=== PATIENT | female | born 1985 | race Caucasian/White ===

== ENCOUNTER 2018-06-02 10:16 | Emergency (ER) | payer OTHER ==
[2018-06-02 10:36] VITALS: BP 128/57; PULSE 83; TEMP 98.2; BMI 31.9
--- NOTE | 2018-06-02 11:22 | PDOC ---
History of Present Illness - General Chief Complaint: Ear Problem Stated Complaint: RT EAR PAIN Time Seen by Provider: 06/02/18 10:52 History Source: Patient Exam Limitations: No Limitations - History of Present Illness Initial Comments: CHIEF COMPLAINT: 33 y/o afebrile female with no significant PMH c/o right earache x 1 week. HISTORY OF PRESENT ILLNESS: The patient states she's had right ear pain with decreased hearing for 1 week. The patient states she's had right ear issues for 1 year. She believes she had something stuck in her right ear for 1 year and that's what's bothering her. She denies fever, chills, recent swimming, discharge from right ear, GAONA, dizziness, n/v/d and all other symptoms. She does admit to cleaning her ears with q-tips. She has not seen her PCP in the last year for her symptoms. Vital signs on arrival are within normal limits. REVIEW OF SYSTEMS: GENERAL/CONSTITUTIONAL: No fever. HEAD, EYES, EARS, NOSE AND THROAT: No change in vision. +right ear pain with decreased hearing. No sore throat. SKIN: No rash or easy bruising. NEUROLOGIC: No headache, vertigo, loss of consciousness, or loss of sensation. PHYSICAL EXAM: GENERAL: The patient is awake, alert, and fully oriented, in no acute distress. She is well appearing and ambulatory. HEAD: Normal with no signs of trauma. No mastoid TTP b/l. ENT: Pupils equal, round and reactive to light, extraocular movements intact, sclera anicteric, conjunctiva clear. No TTP of tragus b/l. Right TM sclerotic. No erythema or dullness to right TM. No erythema or edema to right canal. No foreign body noted. NEUROLOGICAL: Normal speech, normal gait. CN II-XII grossly intact. SKIN: Warm, dry, normal turgor, no rashes or lesions noted. Past History - Past Medical History Allergies/Adverse Reactions: Allergies Allergy/AdvReac Type Severity Reaction Status Date / Time No Known Allergies Allergy Verified 06/02/18 10:32 Home Medications: Ambulatory Orders NK [No Known Home Medication] 06/02/18 COPD: No - Suicide/Smoking/Psychosocial Hx Smoking History: Current some day smoker Number of Cigarettes Smoked Daily: 2 Information on smoking cessation initiated: Yes 'Breaking Loose' booklet given: 06/02/18 Hx Alcohol Use: No Drug/Substance Use Hx: No *Physical Exam - Vital Signs Last Vital Signs Temp Pulse Resp BP Pulse Ox 98.2 F 83 18 128/57 99 06/02/18 10:25 06/02/18 10:25 06/02/18 10:25 06/02/18 10:25 06/02/18 10:25 Medical Decision Making - Medical Decision Making A/P: 33 y/o female with right TM sclerosis. WIll refer to Dr. Wilkins for further evaluation. Patient instructed to return to the ER with any worsening or concerning symptoms *DC/Admit/Observation/Transfer Diagnosis at time of Disposition: Disorder of tympanic membrane of right ear - Discharge Dispostion Disposition: HOME Condition at time of disposition: Good - Referrals Referrals: Owen Wilkins MD [Staff Physician] - - Patient Instructions Printed Discharge Instructions: DI for Ear Pain-Adult Additional Instructions: Discharge Instructions: -You can take over the counter motrin OR IBUPROFEN every 6 hours for pain -Please call Dr. Wilkins today to schedule a follow up appointment for as soon as possible. -Return to the ER with any worsening or concerning symptoms - Post Discharge Activity Forms/Work/School Notes: Back to Work
== END 2018-06-02 11:28 | disposition home or self-care (01) ==
LOC: JERFT 10:16
DX: H73.891 Other specified disorders of tympanic membrane, right ear (principal)
CPT/HCPCS: 99281-25

== ENCOUNTER 2019-06-29 14:12 | Emergency (ER) | payer OTHER ==
[2019-06-29 14:18] VITALS: BP 99/62; PULSE 79; TEMP 98.1; BMI 33.3
--- NOTE | 2019-06-29 14:21 | PDOC ---
Rapid Medical Evaluation Chief Complaint: Eye Problem Time Seen by Provider: 06/29/19 14:16 Medical Evaluation: Allergies Allergy/AdvReac Type Severity Reaction Status Date / Time No Known Allergies Allergy Verified 06/02/18 10:32 06/29/19 14:18 Pt c/o: bennie eye redness and itching , placed on gtts but lost them, denies visual changes but does state photosensitivity Pt on brief exam: sclera bennie with erythema, mild tearing, no discharge, Pt ordered for: none Pt to proceed to the ED Discharge Disposition - Diagnosis Eye redness - Referrals - Patient Instructions - Post Discharge Activity
--- NOTE | 2019-06-29 15:05 | PDOC ---
History of Present Illness - General Chief Complaint: Eye Problem Stated Complaint: PINK EYE Time Seen by Provider: 06/29/19 14:16 History Source: Patient Exam Limitations: No Limitations - History of Present Illness Initial Comments: 06/29/19 14:51 Patient stated onset of redness, swelling, and drainage to right eye started last week, started using Visine over the weekend. Was seen at another urgent care/ER 4 days ago and was prescribed some eyedrops but lost the bottle. States since that time has had a progression and worsening with now spreading to her left eye. Denies visual changes, denies fever, states wakes up in the morning with purulent drainage and redness bilaterally. Timing/Duration: 1 week Severity: moderate Associated Symptoms: reports: denies symptoms. denies: fever/chills Past History - Travel Traveled outside of the country in the last 30 days: No Close contact w/someone who was outside of country & ill: No - Past Medical History Allergies/Adverse Reactions: Allergies Allergy/AdvReac Type Severity Reaction Status Date / Time No Known Allergies Allergy Verified 06/29/19 14:18 Home Medications: Ambulatory Orders Tobramycin 0.3% Ophth Soln [Tobrex Ophthalmic Solution -] 2 drop OS QID #1 drops 06/29/19 COPD: No - Suicide/Smoking/Psychosocial Hx Smoking History: Current some day smoker Number of Cigarettes Smoked Daily: 2 Information on smoking cessation initiated: No 'Breaking Loose' booklet given: 06/02/18 Hx Alcohol Use: No Drug/Substance Use Hx: Yes (smokes weed) Review of Systems - Review of Systems Able to Perform ROS?: Yes Is the patient limited Faroese proficient: Yes Constitutional: Yes: See HPI. No: Symptoms Reported, Fever, Loss of Appetite, Malaise HEENTM: Yes: Symptoms Reported, See HPI, Eye Pain, Tearing (with yellow discharge/ crusting in AM) Respiratory: Yes: See HPI. No: Symptoms reported, Cough Integumentary: Yes: See HPI. No: Symptoms Reported All Other Systems: Reviewed and Negative *Physical Exam - Vital Signs Last Vital Signs Temp Pulse Resp BP Pulse Ox 98.1 F 79 18 99/62 100 06/29/19 14:16 06/29/19 14:16 06/29/19 14:16 06/29/19 14:16 06/29/19 14:16 - Physical Exam General Appearance: Yes: Nourished, Appropriately Dressed, Apparent Distress, Mild Distress, Moderate Distress HEENT: positive: EOMI, GUILLERMO (but bilateral severely injected eyes with tearing and yellowish drainage. Has some mild swelling to the lids. Visual acuity is within normal limits,), Normal ENT Inspection. negative: Pharyngeal Erythema, Nasal Congestion, Rhinorrhea Neck: positive: Supple. negative: Tender, Lymphadenopathy (R), Lymphadenopathy (L) Respiratory/Chest: positive: Lungs Clear Musculoskeletal: positive: Normal Inspection Extremity: positive: Normal Capillary Refill, Normal Inspection, Normal Range of Motion Integumentary: positive: Normal Color, Dry, Warm Neurologic: positive: customer retention representative II-XII NML intact, Fully Oriented, Alert, Normal Mood/ Affect *DC/Admit/Observation/Transfer Diagnosis at time of Disposition: Conjunctivitis Qualifiers: Conjunctivitis type: acute Acute conjunctivitis type: unspecified Laterality: bilateral Qualified Code(s): H10.33 - Unspecified acute conjunctivitis, bilateral - Discharge Dispostion Disposition: HOME Condition at time of disposition: Stable Decision to Admit order: No - Prescriptions Prescriptions: Tobramycin 0.3% Ophth Soln [Tobrex Ophthalmic Solution -] 2 drop OS QID #1 drops - Referrals Referrals: Chintan Rodriguez MD [Staff Physician] - - Patient Instructions Printed Discharge Instructions: DI for Conjunctivitis Additional Instructions: Rest, avoid rubbing eyes Wash hands frequently as this is very contagious Wash hands, use eye drops as directed, wash hands after use Do not share eyedrops with other person to may become infected as this will infect them Avoid contact with others until redness and discharge is gone from eyes. Followup with ophthalmology or private physician as needed Tobramycin drops, 2 drops to each affected eye 4 times a day for 5 days total - Post Discharge Activity Forms/Work/School Notes: Back to Work
== END 2019-06-29 15:16 | disposition home or self-care (01) ==
LOC: JERFT 14:12
DX: H10.33 Unspecified acute conjunctivitis, bilateral (principal)
CPT/HCPCS: 99281-25

== ENCOUNTER 2020-01-16 20:04 | Emergency (ER) | payer OTHER ==
[2020-01-16] MEDS ORDERED: IBUPROFEN 600 MG TABLET (FP) PO ONE ×2 (20:09→20:41)
--- NOTE | 2020-01-16 20:11 | PDOC ---
Rapid Medical Evaluation Time Seen by Provider: 01/16/20 20:06 Medical Evaluation: Allergies Allergy/AdvReac Type Severity Reaction Status Date / Time No Known Allergies Allergy Verified 06/29/19 14:18 01/16/20 20:09 I have performed a brief in-person evaluation of this patient. The patient presents with a chief complaint of: Pt is a 34 y/o female with bodyaches, throat pain and "fever inside my body" for the last 2 days. She has not taken anything for her symptoms. Pertinent physical exam findings: stable. Non-toxic I have ordered the following: influenza swab, strep swab, motrin ordered The patient will proceed to the ED for further evaluation Discharge Disposition - Diagnosis Throat pain - Referrals - Patient Instructions - Post Discharge Activity
[2020-01-16 20:18] VITALS: BP 119/70; PULSE 96; TEMP 100; BMI 32.5
--- NOTE | 2020-01-16 20:50 | PDOC ---
History of Present Illness - General Chief Complaint: Sore Throat Stated Complaint: SORE THROAT/FEVER Time Seen by Provider: 01/16/20 20:06 - History of Present Illness Initial Comments: 01/16/20 20:50 34-year-old female without comorbidities presents for sore throat and fever x1 day Past History - Past Medical History Allergies/Adverse Reactions: Allergies Allergy/AdvReac Type Severity Reaction Status Date / Time No Known Allergies Allergy Verified 01/16/20 20:12 Home Medications: Ambulatory Orders Tobramycin 0.3% Ophth Soln [Tobrex Ophthalmic Solution -] 2 drop OS QID #1 drops 06/29/19 COPD: No - Psycho Social/Smoking Cessation Hx Smoking History: Never smoked Have you smoked in the past 12 months: No Number of Cigarettes Smoked Daily: 2 Information on smoking cessation initiated: No 'Breaking Loose' booklet given: 06/02/18 Hx Alcohol Use: No Drug/Substance Use Hx: No Review of Systems - Review of Systems Constitutional: Yes: Chills, Fever, Malaise, Night Sweats HEENTM: Yes: Throat Pain *Physical Exam - Vital Signs Last Vital Signs Temp Pulse Resp BP Pulse Ox 100.0 F H 96 H 18 119/70 98 01/16/20 20:10 01/16/20 20:10 01/16/20 20:10 01/16/20 20:10 01/16/20 20:10 - Physical Exam 01/16/20 20:50 GENERAL: The patient is awake, alert, and fully oriented, in no acute distress. HEAD: Normal with no signs of trauma. EYES: sclera anicteric, conjunctiva clear. ENT: Ears normal tympanic membranes normal oropharynx clear uvula midline NECK: Normal range of motion LUNGS: Breath sounds equal, clear to auscultation bilaterally. No wheezes, and no crackles. HEART: S1 and S2 without murmur, rub or gallop. ABDOMEN: Soft, nontender, normoactive bowel sounds. No guarding, no rebound. N o masses. EXTREMITIES: Normal range of motion, no edema. No clubbing or cyanosis. No cords, erythema, or tenderness. NEUROLOGICAL: Cranial nerves II through XII grossly intact. PSYCH: Normal mood, normal affect. SKIN: Warm, Dry, normal turgor, no rashes or lesions noted. Medical Decision Making - Medical Decision Making 01/16/20 21:22 Supportive care for viral upper respiratory infection I have reviewed the pathophysiology with the patient. They are in agreement with the treatment plan all questions were answered to their satisfaction. Understanding for follow-up without fail was also conveyed to the patient. Again they are in agreement. Discharge - Discharge Information Problems reviewed: Yes Clinical Impression/Diagnosis: Throat pain, Viral URI with cough Condition: Stable Disposition: HOME - Admission No - Follow up/Referral Referrals: Mary Conteh [Primary Care Provider] - - Patient Discharge Instructions Additional Instructions: Supportive care. Maintain hydration with Pedialyte. Tylenol and Motrin as directed for fever and body aches. Return to the emergency room for worsening symptoms. And without fail follow-up with your primary care physician in 1 to 2 days for further evaluation and treatment options. - Post Discharge Activity Work/Back to School Note: Back to Work
== END 2020-01-16 21:25 | disposition home or self-care (01) ==
LOC: JERFT 20:04
DX: J06.9 Acute upper respiratory infection, unspecified (principal); B97.89 Other viral agents as the cause of diseases classified elsewhere
CPT/HCPCS: 87070; 87804; 87880; 99282-25

== ENCOUNTER 2020-12-28 10:38 | Emergency (ER) | payer OTHER ==
[2020-12-28 10:53] VITALS: BP 119/67; PULSE 89; TEMP 98.2; BMI 37.0
== END 2020-12-28 15:13 | disposition home or self-care (01) ==
LOC: JER 10:38
PROC: 2W3QX1Z Immobilization of Right Lower Leg using Splint (ICD-10-PCS; principal; 2020-12-28)
DX: M79.661 Pain in right lower leg (principal)
CPT/HCPCS: 93971-TC; 99284-25

== ENCOUNTER 2021-07-10 20:08 | Emergency (ER) | payer OTHER ==
[2021-07-10 20:39] VITALS: BMI 37.8
[2021-07-10] MEDS ORDERED: DEXAMETHASONE SOD PHOSPHATE 4 MG/1 ML VIAL IVPUSH ONE (21:10)
[2021-07-10] MEDS ORDERED: SODIUM CHLORIDE 0.9% 500 ML INFUS.BAG IV ONE (21:12)
[2021-07-10] MEDS ORDERED: ACETAMINOPHEN 1000 MG/100 ML VIAL (NON FORMULARY) IVPB ONE (21:12)
[2021-07-10] MEDS ORDERED: ACETAMINOPHEN INJECTION 100 ML IVPB ONE (21:14)
[2021-07-10] MEDS ORDERED: DEXAMETHASONE SOD PHOSPHATE 10 MG/1 ML VIAL ONE (21:14)
[2021-07-10 21:37] LABS: PROTHROMBIN TIME (PATIENT) 12.3 SEC (9.7-13.0)
[2021-07-10 21:40] LABS: ACTIVATED PTT 27.1 SECONDS (25.2-36.5)
[2021-07-10 21:44] LABS: CHLORIDE 104 mmol/L (98-107); SODIUM 135 mmol/L (136-145)
[2021-07-10 21:46] LABS: ALBUMIN 2.1 g/dl (3.4-5.0); CALCIUM 8.2 mg/dL (8.5-10.1)
[2021-07-10 21:47] LABS: ANION GAP 10 MMOL/L (8-16); BLOOD UREA NITROGEN 4.6 mg/dL (7-18); CO2 21 mmol/L (21-32); GLUCOSE,RANDOM 120 mg/dL (74-106)
[2021-07-10 21:49] LABS: HEMATOCRIT 31.3 % (32.4-45.2); HEMOGLOBIN 10.6 GM/dL (10.7-15.3); MCHC 33.7 g/dl (32.0-36.0); MEAN PLT VOLUME 7.6 fl (7.5-11.1); PLATELET COUNT 289 10^3/uL (134-434); RBC 3.64 M/mm3 (3.60-5.2); RDW 14.1 % (11.6-15.6); WHITE BLOOD COUNT 11.6 K/mm3 (4.0-10.0)
[2021-07-10 21:49] LABS: BILIRUBIN,DIRECT 0.7 mg/dL (0.0-0.2); SGOT/AST 49 U/L (15-37); SGPT/ALT 57 U/L (13-61)
[2021-07-10 21:50] LABS: CREATININE 0.7 mg/dL (0.55-1.3)
[2021-07-10 21:51] LABS: BILIRUBIN,TOTAL 0.9 mg/dL (0.2-1); TOT PROT 6.1 g/dl (6.4-8.2)
[2021-07-10 21:52] LABS: ALK PHOS 223 U/L (45-117)
[2021-07-10 21:54] LABS: LDH 270 U/L (84-246)
[2021-07-10 23:01] LABS: ANISOCYTOSIS 0; MACROCYTOSIS 0; PLATELET ESTIMATE NORMAL
[2021-07-10 23:20] VITALS: BP 101/85; PULSE 83; TEMP 97.6
[2021-07-10 23:45] LABS: EPI CELLS >36 /uL (0-25.1); HYALINE CASTS 1 /uL (0-3.1); URINE APPEARANCE CLOUDY; URINE BACTERIA 604 /uL (0-1359); URINE BILIRUBIN 1+ (NEGATIVE); URINE COLOR DK YELLOW; URINE GLUCOSE (UA) NEGATIVE (NEGATIVE); URINE KETONE TRACE (NEGATIVE); URINE LEUK ESTERASE NEGATIVE (NEGATIVE); URINE NITRITE NEGATIVE (NEGATIVE); URINE PROTEIN NEGATIVE (NEGATIVE)
== END 2021-07-11 00:30 | disposition short-term general hospital (02) ==
LOC: JER 20:08
PROC: 3E033GC Introduction of Other Therapeutic Substance into Peripheral Vein, Percutaneous Approach (ICD-10-PCS; principal; 2021-07-10)
DX: O98.513 Other viral diseases complicating pregnancy, third trimester (principal); U07.1 COVID-19; Z3A.34 34 weeks gestation of pregnancy
CPT/HCPCS: 36415; 80053; 81003; 82248; 82550; 82728; 83605; 83615; 84484; 85025; 85379; 85610; 85730; 86140; 87040; 87086; 87804; 93005; 93010; 99285-25; C9803; J0131; U0003; U0005

== ENCOUNTER 2024-07-23 18:06 | Emergency (ER) | payer OTHER ==
[2024-07-23 18:25] VITALS: BP 106/71; PULSE 100; RESP 20; TEMP 98.1; BMI 41.8
[2024-07-23] MEDS: ACETAMINOPHEN 500 MG TABLET (FP) PO ONE (19:00)
[2024-07-23] MEDS ORDERED: ACETAMINOPHEN 500 MG TABLET (FP) ONE (19:01)
[2024-07-23] MEDS ORDERED: BACITRACIN ZINC 15 GM TUBE TOPICAL OINTMENT ONE (19:33)
[2024-07-23] MEDS: BACITRACIN ZINC 15 GM TUBE TOPICAL OINTMENT TP ONE (19:47)
== END 2024-07-23 19:51 | disposition home or self-care (01) ==
LOC: JERFT 18:06
PROC: 0XQNXZZ Repair Right Index Finger, External Approach (ICD-10-PCS; principal; 2024-07-23)
DX: S61.210A Laceration without foreign body of right index finger without damage to nail, initial encounter (principal); W26.0XXA Contact with knife, initial encounter
CPT/HCPCS: 99283-25